=== PATIENT | female | born 1945 | race Caucasian/White ===

== ENCOUNTER 2017-06-04 13:25 | Outpatient (CLI) | payer MEDICARE, BC ==
--- NOTE | 2017-06-04 14:23 | MMO ---
BILATERAL SCREENING MAMMOGRAM: History: Screening. Comparison: 04-05-162014, 2012 Technique: Bilateral screening CC and ML views performed with and interpreted with the assistance o f computer aided detection. FINDINGS: Benign calcification is present in the left breast. IMPRESSION: BIRADS 2 benign findings. Continue annual mammographic screening recommended. POS: [facility]
== END 2017-06-04 13:26 | disposition home or self-care (01) ==
LOC: SCSMAMMO 13:25
PROVIDERS: ATTEND Family Medicine
DX: Z12.31 Encounter for screening mammogram for malignant neoplasm of breast (principal)
CPT/HCPCS: 77067; G0202

== ENCOUNTER 2017-12-07 10:39 | Emergency (ER) | payer MEDICARE, BC ==
[2017-12-07 10:59] LABS: Bilirubin Negative (Negative); Blood, Urine Large (Negative); Glucose, Urine (Dipstick) Negative (Negative); Leukocyte Large (Negative); Nitrite Negative (Negative); Protein, Urine (Dipstick) 100 mg/dL (Neg-Trace)
[2017-12-07 11:00] LABS: Clarity Cloudy (Clear); Specific Gravity, Urine 1.026 (1.002-1.036)
[2017-12-07 11:09] LABS: Bacteria/HPF 2+ HPF (None Seen); WBC/HPF 21-50 HPF (0-3)
== END 2017-12-07 11:29 | disposition home or self-care (01) ==
LOC: SCSER 10:39
DX: N39.0 Urinary tract infection, site not specified (principal); E11.9 Type 2 diabetes mellitus without complications; E78.5 Hyperlipidemia, unspecified
CPT/HCPCS: 81003; 81015; 87077; 87086; 87186; 99283

== ENCOUNTER 2018-12-26 21:57 | Emergency (ER) | payer MEDICARE, BC ==
[2018-12-26 22:24] LABS: Bilirubin Negative (Negative); Blood, Urine Trace (Negative); Clarity Cloudy (Clear); Glucose, Urine (Dipstick) Negative (Negative); Leukocyte Large (Negative); Nitrite Negative (Negative); Protein, Urine (Dipstick) Negative (Neg-Trace)
[2018-12-26 22:27] LABS: RBC/HPF 0-3 HPF (0-3); Squamous Epithelial 0-3 HPF (0-3); WBC/HPF 21-50 HPF (0-3)
[2018-12-26 22:28] LABS: Bacteria/HPF Rare-Few HPF (None Seen); Crystals/HPF RARE AMORPH URATES HPF (Negative); Renal Epithelial 0-3 HPF (0-3)
== END 2018-12-26 22:53 | disposition home or self-care (01) ==
LOC: SCSER 21:57
DX: N39.0 Urinary tract infection, site not specified (principal); E78.5 Hyperlipidemia, unspecified; E11.40 Type 2 diabetes mellitus with diabetic neuropathy, unspecified; Z79.82 Long term (current) use of aspirin
CPT/HCPCS: 36416; 81003; 81015; 87086; 99283

== ENCOUNTER 2019-01-01 13:24 | Outpatient (CLI) | payer MEDICARE, BC ==
--- NOTE | 2019-01-01 16:31 | MMO ---
Bilateral MAMMO Bilat Screen [facility]DI. CLINICAL HISTORY: Patient is 73 years old and is seen for screening. The patient has no family history of breast cancer. The patient has no personal history of cancer. VIEWS: The views performed were: bilateral craniocaudal and bilateral mediolateral oblique. FILMS COMPARED: The present examination has been compared to prior imaging studies performed at [facility] on 09/07/2014 and 06/04/2017, and at [facility] on 06/12/2013 and 11/22/2015. This study has been interpreted with the assistance of computer-aided detection. MAMMOGRAM FINDINGS: There are scattered fibroglandular densities. There are stable benign appearing calcifications seen in both breasts. There are no suspicious masses, suspicious calcifications, or new areas of architectural distortion. IMPRESSION: THERE IS NO MAMMOGRAPHIC EVIDENCE OF MALIGNANCY. A ROUTINE FOLLOW-UP MAMMOGRAM IN 1 YEAR IS RECOMMENDED. ACR BI-RADS Category 2 - Benign finding MAMMOGRAPHY NOTE: 1. A negative mammogram report should not delay a biopsy if a dominant of clinically suspicious mass is present. 2. Approximately 10% to 15% of breast cancers are not detected by mammography. 3. Adenosis and dense breasts may obscure an underlying neoplasm.
== END 2019-01-01 13:25 | disposition home or self-care (01) ==
LOC: SCSMAMMO 13:24
PROVIDERS: ATTEND Family Medicine
DX: Z12.31 Encounter for screening mammogram for malignant neoplasm of breast (principal)
CPT/HCPCS: 77067

== ENCOUNTER 2019-03-16 11:30 | Outpatient (CLI) | payer MEDICARE, BC ==
--- NOTE | 2019-03-16 13:43 | RAD ---
LEFT FOOT FOUR VIEWS: HISTORY: Injury. FINDINGS: Evidence of a subtle fracture involving the base of the proximal phalanx of the fourth toe. Phalange s are otherwise unremarkable with mild degenerative changes at the IP joints. The metatarsals and ta rsals appear intact. IMPRESSION: Nondisplaced fracture involving the base of the proximal phalanx of the fourth toe. POS: [facility]
== END 2019-03-16 11:31 | disposition home or self-care (01) ==
LOC: SCSRAD 11:30
PROVIDERS: ATTEND Family Medicine
DX: M79.672 Pain in left foot (principal); S92.515A Nondisplaced fracture of proximal phalanx of left lesser toe(s), initial encounter for closed fracture

== ENCOUNTER 2021-12-21 17:09 | Outpatient (CLI) | payer MEDICARE, BC | END 2021-12-21 17:10 | disposition home or self-care (01) | LOC: RAD 17:09 | PROVIDERS: ATTEND Family Medicine | DX: S83.91XA Sprain of unspecified site of right knee, initial encounter (principal) ==

== ENCOUNTER 2024-08-27 08:45 | Outpatient (CLI) | payer MEDICARE, BC | END 2024-08-27 08:46 | disposition home or self-care (01) | LOC: PET 08:45 | PROVIDERS: ATTEND Internal Medicine Hematology & Oncology | DX: R59.0 Localized enlarged lymph nodes (principal); G70.00 Myasthenia gravis without (acute) exacerbation; C83.33 Diffuse large B-cell lymphoma, intra-abdominal lymph nodes | CPT/HCPCS: 78815; A9552 ==

== ENCOUNTER 2025-07-22 12:58 | Outpatient (CLI) | payer MEDICARE, BC | END 2025-07-22 12:59 | disposition home or self-care (01) | LOC: SCSBT 12:58 | PROVIDERS: ATTEND Student in an Organized Health Care Education/Training Program | DX: Z13.820 Encounter for screening for osteoporosis (principal); Z78.0 Asymptomatic menopausal state; M81.0 Age-related osteoporosis without current pathological fracture | CPT/HCPCS: 77080 ==